=== PATIENT | female | born 1995 | race Caucasian/White ===

== ENCOUNTER 2020-10-14 14:53 | Emergency (ER) | payer BC ==
[2020-10-14 14:58] VITALS: BP 123/81; PULSE 81; RESP 18; TEMP 98
[2020-10-14] MEDS ORDERED: LIDOCAINE VISCOUS 2% 15 ML CUP MUCOUS MEM STA (15:29)
--- NOTE | 2020-10-14 15:38 | ED ---
General Adult HPI - General Chief complaint: ENT Stated complaint: Sore throat,oral pain Time Seen by Provider: 10/14/20 15:13 Source: patient Mode of arrival: ambulatory Limitations: no limitations - History of Present Illness Initial comments: 24-year-old female presents to the emergency room for a chief complaint of pain to the tongue. Patient reports she has a sore on the bottom of her tongue. States it is very painful. States she has had these before on her gums and had a mouthwash to help numb the area. Patient denies fevers or chills. Denies any swelling of her throat.Patient has no other complaints at this time including shortness of breath, chest pain, abdominal pain, nausea or vomiting, headache, or visual changes. - Related Data Previous Rx's Medication Instructions Recorded Lidocaine Viscous 2% [Xylocaine 5 ml MUCOUS MEM QID PRN #50 ml 10/14/20 Viscous] Mag Hydrox/Al Hydrox/Simeth 5 ml PO QID PRN #50 ml 10/14/20 [Maalox] diphenhydrAMINE ELIXIR [Benadryl 5 ml PO QID PRN #50 ml 10/14/20 Elixir] Allergies Allergy/AdvReac Type Severity Reaction Status Date / Time No Known Allergies Allergy Verified 10/14/20 14:58 Review of Systems ROS Statement: Those systems with pertinent positive or pertinent negative responses have been documented in the HPI. ROS Other: All systems not noted in ROS Statement are negative. Past Medical History Past Medical History: No Reported History History of Any Multi-Drug Resistant Organisms: None Reported Past Surgical History: Section Past Psychological History: Anxiety, Depression, PTSD Smoking Status: Former smoker Past Alcohol Use History: None Reported Past Drug Use History: Marijuana General Exam Limitations: no limitations General appearance: alert Head exam: Present: atraumatic, normal inspection Eye exam: Present: normal appearance, PERRL, EOMI. Absent: scleral icterus ENT exam: Absent: normal exam (patient has small ulcer noted on underside of right tongue), normal oropharynx (No swelling of lips tongue or throat. No lesions on the oropharynx.) Neck exam: Present: normal inspection, full ROM Respiratory exam: Present: normal lung sounds bilaterally. Absent: respiratory distress, wheezes Cardiovascular Exam: Present: regular rate, normal rhythm, normal heart sounds GI/Abdominal exam: Present: soft, normal bowel sounds. Absent: distended, tenderness Course Vital Signs 10/14/20 14:54 Temperature 98.0 F Pulse Rate 81 Respiratory 18 Rate Blood Pressure 123/81 O2 Sat by Pulse 100 Oximetry Medical Decision Making - Medical Decision Making Patient requesting a mouthwash to numb this area. I did discuss Magic mouthwash with her. Discussed not to swallow this. She will follow-up with her doctor. She'll return to the emergency room for any worsening symptoms Disposition Clinical Impression: Tongue sore Disposition: HOME SELF-CARE Condition: Good Instructions (If sedation given, give patient instructions): Leah Ottes (ED) Additional Instructions: Please use medications as directed. Mix 5 mL of liquid lidocaine with 5 mL of Maalox and 5 mL of Benadryl. Swish this around for 1 minute. Do not swallow. You may do this up to 4 times daily. Follow-up with your doctor. Return to the emergency room for any worsening symptoms. Prescriptions: diphenhydrAMINE ELIXIR [Benadryl Elixir] 5 ml PO QID PRN #50 ml PRN Reason: Pain Mag Hydrox/Al Hydrox/Simeth [Maalox] 5 ml PO QID PRN #50 ml PRN Reason: Pain Lidocaine Viscous 2% [Xylocaine Viscous] 5 ml MUCOUS MEM QID PRN #50 ml PRN Reason: Pain Is patient prescribed a controlled substance at d/c from ED?: No Referrals: Reema Miller MD [Primary Care Provider] - 1-2 days Time of Disposition: 15:32
== END 2020-10-14 15:55 | disposition home or self-care (01) ==
LOC: EC 14:53
DX: K14.9 Disease of tongue, unspecified (principal); Z87.891 Personal history of nicotine dependence
CPT/HCPCS: 99282

== ENCOUNTER → 2022-04-01 | Outpatient (CLI) | payer OTHER ==
--- NOTE | 2022-04-01 15:52 | US ---
EXAMINATION TYPE: US transvaginal DATE OF EXAM: 04/01/2022 COMPARISON: CT abdomen and pelvis December 14, 2012 CLINICAL HISTORY: N94.2 VAGINISMUS. Extreme internal pelvic tenderness. Hx x 3 csections TECHNIQUE: Transvaginal (TV). Date of LMP: 03/29/2022, EXAM MEASUREMENTS: Uterus: 9.4 x 3.2 x 4.4 cm Endometrial Stripe: 0.9 cm 1. Uterus: Anteverted wnl 2. Endometrium: wnl 3. Right Ovary: Obscured by overlying bowel gas 4. Left Ovary: Obscured by overlying bowel gas 5. Bilateral Adnexa: Peristalsing bowel bilaterally 6. Posterior cul-de-sac: No free fluid, peristalsing bowel Heterogeneous uterus with endometrial stripe poorly seen measuring up to 9 mm which is slightly thick ened for proliferative phase of menstrual cycle. No free fluid in pelvis. Pulsating bowel in the bilateral adnexa, normal or abnormal ovary not identified bilaterally. IMPRESSION: Suboptimal study as detailed above.
== END | disposition home or self-care (01) ==
LOC: RADUSWWP 15:12
PROVIDERS: ATTEND Family Medicine
DX: N94.2 Vaginismus (principal)
CPT/HCPCS: 76830

== ENCOUNTER → 2024-01-19 | Outpatient (CLI) | payer BC ==
--- NOTE | 2024-01-19 16:42 | US ---
EXAMINATION TYPE: US kidneys/renal and bladder DATE OF EXAM: 01/19/2024 COMPARISON: 06/18/2012 CLINICAL INDICATION: Female, 28 years old with history of R10.9 UNSPECIFIED ABDOMINAL PAIN; Flank afshin n bilateral EXAM MEASUREMENTS: Right Kidney: 7.3 x 4.2 x 3.9 cm Left Kidney: 8.7 x 3.9 x 4.2 cm Right Kidney: No hydronephrosis or masses seen Left Kidney: No hydronephrosis or masses seen Bladder: wnl Bilateral Jets seen: No There is no evidence for hydronephrosis at this point in time. No nephrolithiasis is seen. No sergio s are identified. The urinary bladder is anechoic. IMPRESSION: No evidence for obstructive uropathy or renal calculus.
== END | disposition home or self-care (01) ==
LOC: RADUSWWP 15:18
PROVIDERS: ATTEND Family Medicine
DX: R10.9 Unspecified abdominal pain (principal)
CPT/HCPCS: 76770